=== PATIENT | female | born 1980 | race Two or more races ===

== ENCOUNTER → 2024-08-01 | Outpatient (CLI) | payer MEDICAID, SELFPAY ==
--- NOTE | 2024-08-01 09:00 | XR_ITS ---
Examination: Screening digital mammography, bilateral Computer aided detection 3-D breast Tomosynthesis, bilateral Date and time of exam: August 01, 2024 0858 hours Compared to mammograms dating to September 08, 2021 Indication: Screening Technique: Nonmagnified MLO, CC views of the breasts to been obtained, reconstructed from 3-D Tomosynthesis images. R2 computer aided detection program utilized for evaluation of suspicious masses and/or abnormal calcifications. 3-D Tomosynthesis images obtained. Findings: The breasts are heterogeneously dense, which may obscure small masses Breast biopsy marker retroareolar right breast Benign calcifications. No interval suspicious masses Impression: BI-RADS category II: Benign Findings. Recommend 1 year follow-up mammogram.
== END | disposition home or self-care (01) ==
LOC: CDIM 08:45
PROVIDERS: Referring Provider Nurse Practitioner Primary Care; Visit Provider Nurse Practitioner Primary Care
DX: Z12.31 Encounter for screening mammogram for malignant neoplasm of breast (principal); R92.323 Mammographic fibroglandular density, bilateral breasts; R92.1 Mammographic calcification found on diagnostic imaging of breast
CPT/HCPCS: 77063; 77067

== ENCOUNTER → 2025-06-15 | Outpatient (CLI) | payer MEDICAID, SELFPAY ==
--- NOTE | 2025-06-15 14:00 | XR_ITS ---
Examination: Breast ultrasound complete, bilateral Date and time of exam: June 15, 2025, 1424 hours, comparison August 02, 2023 INDICATIONS: Right breast 10:00 nodule with breast biopsy marker 7 mm, left breast 10:00 nodule hyperechoic 14 mm Technique: Real-time grayscale ultrasonographic imaging bilateral breasts, including all 4 quadrants as well as nipple retroareolar and axillary regions. Findings: Sonographic images right breast 8:00 nodule 11 x 7 mm circumscribed Sonographic images left breast 1:00 nodule irregular margins 8 x 8 mm 2:00 cyst 5 x 5 mm 10:00 hypoechoic circumscribed nodule 15 x 12 mm IMPRESSION: BI-RADS Category 0: Incomplete: Need additional imaging evaluation This patient should return for dedicated left breast sonography 1 o'clock position with a radiologist in attendance
== END | disposition home or self-care (01) ==
LOC: CDIM 14:02
PROVIDERS: PCP Physician Assistant; Referring Provider Physician Assistant; Visit Provider Physician Assistant
DX: R92.8 Other abnormal and inconclusive findings on diagnostic imaging of breast (principal)
CPT/HCPCS: 76641